=== PATIENT | male | born 1985 | race Caucasian/White ===

== ENCOUNTER 2021-08-03 09:31 | Emergency (ER) | payer SELFPAY ==
[2021-08-04 17:40] LABS: SARS-CoV-2 PCR by NAA Not Detected (NotDetected)
== END 2021-08-03 12:28 | disposition home or self-care (01) ==
LOC: NAV ERS 11:43
DX: J02.9 Acute pharyngitis, unspecified (principal); Z20.822 Contact with and (suspected) exposure to COVID-19; F17.220 Nicotine dependence, chewing tobacco, uncomplicated
CPT/HCPCS: 99283; U0003; U0005

== ENCOUNTER 2021-11-28 00:48 | Emergency (ER) | payer SELFPAY ==
[2021-11-28] MEDS ORDERED: Ibuprofen 800 MG TAB ONE (01:52)
== END 2021-11-28 02:02 | disposition home or self-care (01) ==
LOC: NAV ERS 00:48
DX: S93.401A Sprain of unspecified ligament of right ankle, initial encounter (principal); F17.220 Nicotine dependence, chewing tobacco, uncomplicated; X50.0XXA Overexertion from strenuous movement or load, initial encounter